=== PATIENT | male | born 1955 | race Caucasian/White ===

== ENCOUNTER → 2020-03-18 | Day surgery (SDC) | payer OTHER ==
[~2020-03-18] MED LIST: ASPIRIN EC81 MG PO; BENTYL10 MG PO; CLARITIN10 MG PO; DULERA 200 MCG8.8 GM PO; GLUCOTROL5 MG PO; LOPRESSOR50 MG PO; LOVAZA1 GM PO; NITRIC OXIDE PO; NORCO 5-325 TA1 EACH PO; ONDANSETRON ODT8 MG PO; PLAVIX75 MG PO; PROTONIX 40MG T40 MG PO; TRAMADOL HCL50 MG PO; VENTOLIN HFA IN18 GM INH; VITAMIN B-6100 MG PO; VITAMIN B122500 MCG PO; VITAMIN D350 MC3 PO; ZESTRIL2.5 MG PO; [UNRECOGNIZED DRUG - CODE] PO; [UNRECOGNIZED DRUG - OTHER] PO; [UNRECOGNIZED DRUG - OTHER] PO; [UNRECOGNIZED DRUG - OTHER] PO
[2020-03-18 09:36] LABS: ALBUMIN 3.6 g/dL (3.4-5.0); BILIRUBIN - TOTAL 0.5 mg/dL (0.2-1.0); BUN/CREAT RATIO (CALC) 21.2 RATIO; CREATININE 0.66 mg/dL (0.67-1.17); GLOBULIN (CALCULATION) 3.9 g/dL; POTASSIUM 4.4 mmol/L (3.5-5.1); TOTAL PROTEIN 7.5 g/dL (6.4-8.2)
[2020-03-18 09:44] LABS: HCT 44.1 % (42.0-52.0); MCH 30.2 pg (25.0-31.0); MCV 88.7 fL (78.0-100.0); MPV 9.8 fL (6.0-9.5); RBC 4.97 M/uL (4.70-6.00); RDW 13.1 % (11.5-14.0); WBC 5.33 K/uL (4.0-10.5)
== END | disposition home or self-care (01) ==
LOC: FAS 08:06
PROVIDERS: Surgery
DX: K29.70 Gastritis, unspecified, without bleeding (principal); K31.89 Other diseases of stomach and duodenum; K44.9 Diaphragmatic hernia without obstruction or gangrene; K21.9 Gastro-esophageal reflux disease without esophagitis; E11.9 Type 2 diabetes mellitus without complications; J44.9 Chronic obstructive pulmonary disease, unspecified; I25.10 Atherosclerotic heart disease of native coronary artery without angina pectoris; E78.00 Pure hypercholesterolemia, unspecified; I11.0 Hypertensive heart disease with heart failure; I50.9 Heart failure, unspecified; K58.9 Irritable bowel syndrome, unspecified; Z87.891 Personal history of nicotine dependence; Z79.02 Long term (current) use of antithrombotics/antiplatelets; Z79.82 Long term (current) use of aspirin; Z79.899 Other long term (current) drug therapy; Z88.0 Allergy status to penicillin; Z88.1 Allergy status to other antibiotic agents; Z95.1 Presence of aortocoronary bypass graft; Z95.5 Presence of coronary angioplasty implant and graft
CPT/HCPCS: 36415; 76705; 80053; J2250; J2704; J7120

== ENCOUNTER → 2020-05-07 | Day surgery (SDC) | payer OTHER ==
[~2020-05-07] VITALS: Ht 165.1 cm; Wt 78.9 kg
[2020-05-07 10:13] LABS: HCT 43.7 % (42.0-52.0); HGB 14.7 g/dl (13.2-18.0); MCH 30.4 pg (25.0-31.0); MCHC 33.6 g/dL (32.0-36.0); MCV 90.3 fL (78.0-100.0); MPV 10.3 fL (6.0-9.5); RBC 4.84 M/uL (4.70-6.00); WBC 6.3 K/uL (4.0-10.5)
[2020-05-07 10:36] LABS: ALBUMIN 3.5 g/dL (3.4-5.0); BILIRUBIN - TOTAL 0.6 mg/dL (0.2-1.0); BUN/CREAT RATIO (CALC) 22.1 RATIO; CREATININE 0.68 mg/dL (0.67-1.17); GLOBULIN (CALCULATION) 3.7 g/dL; TOTAL PROTEIN 7.2 g/dL (6.4-8.2)
== END | disposition home or self-care (01) ==
LOC: FAS 08:00
PROVIDERS: Surgery
DX: K81.1 Chronic cholecystitis (principal); K76.0 Fatty (change of) liver, not elsewhere classified; K58.9 Irritable bowel syndrome, unspecified; K21.9 Gastro-esophageal reflux disease without esophagitis; I25.10 Atherosclerotic heart disease of native coronary artery without angina pectoris; I10 Essential (primary) hypertension; E11.9 Type 2 diabetes mellitus without complications; E78.00 Pure hypercholesterolemia, unspecified; Z88.1 Allergy status to other antibiotic agents; Z91.09 Other allergy status, other than to drugs and biological substances; Z79.899 Other long term (current) drug therapy; Z95.1 Presence of aortocoronary bypass graft; Z98.890 Other specified postprocedural states; Z96.659 Presence of unspecified artificial knee joint; Z86.69 Personal history of other diseases of the nervous system and sense organs; Z80.3 Family history of malignant neoplasm of breast; Z82.49 Family history of ischemic heart disease and other diseases of the circulatory system; Z87.891 Personal history of nicotine dependence; Z20.822 Contact with and (suspected) exposure to COVID-19
CPT/HCPCS: 36415; 74300; 80053; 93005; C1758; J1100; J1170; J1885; J2250; J2405; J2704; J2710; J3010; J7120; Q9967